=== PATIENT | male | born 1960 | race Caucasian/White ===

== ENCOUNTER 2018-04-20 10:56 | Emergency (ER) | payer OTHER ==
[~2018-04-20] VITALS: Ht 180.3 cm; Wt 136.1 kg
[2018-04-20 10:58] VITALS: Ht 180.3 cm; Wt 136.1 kg
[2018-04-20 13:39] VITALS: BP 143/86
== END 2018-04-20 13:39 | disposition home or self-care (01) ==
LOC: ED 10:56
DX: J44.1 Chronic obstructive pulmonary disease with (acute) exacerbation (principal); Z86.73 Personal history of transient ischemic attack (TIA), and cerebral infarction without residual deficits; Z88.5 Allergy status to narcotic agent
CPT/HCPCS: 83880; J7512; J7613; J7620; Q0092

== ENCOUNTER 2018-09-23 08:15 | Emergency (ER) | payer OTHER ==
[~2018-09-23] VITALS: Ht 180.3 cm; Wt 146.1 kg
[2018-09-23 08:24] VITALS: BP 164/100; Ht 180.3 cm; Wt 146.1 kg
== END 2018-09-23 09:05 | disposition home or self-care (01) ==
LOC: ED 08:15
DX: K04.7 Periapical abscess without sinus (principal); K12.2 Cellulitis and abscess of mouth; I10 Essential (primary) hypertension; J44.9 Chronic obstructive pulmonary disease, unspecified; F17.210 Nicotine dependence, cigarettes, uncomplicated; Z86.73 Personal history of transient ischemic attack (TIA), and cerebral infarction without residual deficits; Z98.890 Other specified postprocedural states; Z88.5 Allergy status to narcotic agent

== ENCOUNTER 2019-07-18 18:20 | Emergency (ER) | payer OTHER ==
[~2019-07-18] VITALS: Ht 180.3 cm; Wt 147.0 kg
[2019-07-18 18:30] VITALS: Ht 180.3 cm; Wt 147.0 kg
[2019-07-18 20:27] VITALS: BP 166/99
== END 2019-07-18 20:27 | disposition home or self-care (01) ==
LOC: ED 18:20
DX: S06.0X0A Concussion without loss of consciousness, initial encounter (principal); S20.212A Contusion of left front wall of thorax, initial encounter; S43.402A Unspecified sprain of left shoulder joint, initial encounter; Z88.5 Allergy status to narcotic agent; J44.9 Chronic obstructive pulmonary disease, unspecified; W06.XXXA Fall from bed, initial encounter; Y93.89 Activity, other specified; Y92.89 Other specified places as the place of occurrence of the external cause; Y99.8 Other external cause status
CPT/HCPCS: Q0092